=== PATIENT | female | born 1935 | race Caucasian/White ===

== ENCOUNTER 2020-08-25 06:14 | Outpatient (REF) | payer MEDICARE, MEDICAID, SELFPAY | END 2020-08-25 06:15 | disposition home or self-care (01) | LOC: HO.LAB 06:14 | PROVIDERS: Visit Provider Internal Medicine | DX: Z20.828 Contact with and (suspected) exposure to other viral communicable diseases (principal) | CPT/HCPCS: C9803; U0003 ==

== ENCOUNTER → 2020-09-07 09:41 | Outpatient (REF) | payer MEDICARE, MEDICAID, SELFPAY ==
--- NOTE | 2020-09-07 | NM_ITS ---
Myocardial perfusion study Indication: Left bundle branch block to evaluate for myocardial ischemia Technique: The patient was brought in for a Lexiscan perfusion study on 09/07/2020. Patient performed low-level exercise and was injected 0.4 mg of Lexiscan intravenously. Within a minute of injection, 25 mCi of sestamibi was given intravenously. Images were obtained using the SPECT gamma camera interlaced with the gating device. Images were obtained in supine position. Resting perfusion study was performed on 09/08/2020. Patient was administered 25 mCi of sestamibi intravenously at rest. Images were then obtained in supine position. Images obtained with and without CT attenuation. Total DLP 51 mGy-cm. Images were processed with the software and compared side to side in short axis, horizontal long axis and vertical long axis views. Findings: The stress perfusion study showed non attenuated images show mildly reduced uptake in the basal and mid anteroseptal area of the LV myocardium. Remainder of the LV myocardium is normally perfused. Attenuation corrected images show minimal thinning in the distal anterior wall of the LV myocardium.. The gated study shows reduced LV systolic function with calculated LVEF of 45%. LV cavity is normal in size. The gated study shows normal systolic wall thickening and contraction of segments with septal dyssynchrony. Resting study shows non attenuated images show moderately reduced uptake in the basal and mid and distal septum and mildly reduced distal septum of the LV myocardium.. Gating at rest reveals septal wall dyssynchrony with ejection fraction at 42%. The findings are consistent with no clear reversible defect suggestive of ischemia.. NM/NM maurilio perf SPECT rest & str Impression: 1. Myocardial perfusion imaging study shows normal myocardial perfusion 2. Gated LVEF is 45% 3. Transient ischemic dilatation not present EKG is nondiagnostic for ischemia
--- NOTE | 2020-09-07 09:30 | CA_ITS ---
Acquisition Time: 2020-09-07 10:05:39 Total Exercise Time: 00:02:00 Test Indications: LBBB Medications: SEE CHART Protocol: LEXISCAN Max HR: 134 BPM 99% of Pred: 135 BPM Max BP: 122/070 mmHG Max Work Load: 1.0 METS Pharmacological stress test with Lexiscan injection, while sitting, without anginal symptoms, with ongoing atrial fibrillation with variable rates ranging 80- 120s, with normotensive response to injection, with nondiagnostic EKG for ischemia. In recovery she was treated with Aminophylline 75mg IVP to reverse Lexiscan and assist with heart rate reduction. Nuclear images pending. Has Hx of PAF. 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 Test reviewed with Dr Mccormack. Referred By: Jonathon Liu Overread By: NICOLE DAHL
== END ==
LOC: HO.CARD 09:41
PROVIDERS: Visit Provider Internal Medicine Cardiovascular Disease
DX: I44.7 Left bundle-branch block, unspecified (principal)
CPT/HCPCS: 78452; 93017; A9500; J0280; J2785

== ENCOUNTER → 2020-09-09 11:11 | Outpatient (BNVA) | payer MEDICARE, MEDICAID, SELFPAY | PROVIDERS: PCP Internal Medicine; Visit Provider Surgery | DX: C50.911 Malignant neoplasm of unspecified site of right female breast (principal) | CPT/HCPCS: 99212 ==